=== PATIENT | male | born 1950 | race Caucasian/White ===

== ENCOUNTER 2022-04-22 10:01 | Emergency (ER) | payer OTHER ==
[~2022-04-22] VITALS: Ht 175.3 cm; Wt 115.2 kg
[~2022-04-22 10:01] MED LIST: ACAR50TA5 PO; ALBU6.7H14 IH; ASPI-1197 PO; ATOR-2 PO; BUDE10.2 IH; FERR-63 PO; FLUO20CA36 PO; FOLI1TAB15 PO; FURO40TA5 PO; GABA-533 PO; Isosorbide Mono 30MG Sr Tab PO; LAMO100T56 PO; LEVE750T10 PO; LOSA100T58 PO; MECL-129 PO; METF-446 PO; METO50TA9 PO; OMEP20CA12 PO; PHENY100 PO; POTA-79 PO; RANO500T3 PO; RIVA2.5T PO; RIVA20TA PO; TAMS0.4C32 PO; TICA90TA PO; VITA1CAP85 PO
[2022-04-22 10:40] LABS: BASOPHILS % (AUTO) 0.8 % (0.0-5.0); EOSINOPHILS % (AUTO) 4.4 % (0.0-8.0); LYMPHOCYTES % (AUTO) 29.2 % (21.0-51.0); MEAN CORPUSCULAR HEMOGLOBIN 24.8 pg (27.0-33.0); MEAN CORPUSCULAR HGB CONC 30.7 g/dL (32.0-36.0); MEAN CORPUSCULAR VOLUME 80.8 fL (79-99); MONOCYTES % (AUTO) 9.4 % (3.0-13.0); NEUTROPHILS % (AUTO) 55.9 % (40.0-77.0); PLATELET COUNT (AUTO) 278 K/uL (130-400); RED BLOOD CELL COUNT(AUTO) 3.59 MIL/uL (4.50-6.20); RED CELL DISTRIBUTION WIDTH 15.3 % (11.0-15.5)
[2022-04-22 10:54] LABS: ALBUMIN 3.3 g/dL (3.5-5.0); POTASSIUM 4.9 mmol/L (3.5-5.1); TOTAL PROTEIN, SERUM 7.8 g/dL (6.0-8.3)
[2022-04-22] MEDS ORDERED: ONDANSETRON ODT 4MG TAB SL STA (11:54)
[2022-04-22 12:10] VITALS: BP 130/64
[2022-04-22] MEDS ORDERED: CEPH500B PO (12:18)
== END 2022-04-22 12:43 | disposition home or self-care (01) ==
LOC: EDH 10:01
DX: I80.8 Phlebitis and thrombophlebitis of other sites (principal); J44.9 Chronic obstructive pulmonary disease, unspecified; E11.9 Type 2 diabetes mellitus without complications; E78.00 Pure hypercholesterolemia, unspecified; I10 Essential (primary) hypertension; G47.30 Sleep apnea, unspecified; I21.9 Acute myocardial infarction, unspecified; Z90.49 Acquired absence of other specified parts of digestive tract; Z79.51 Long term (current) use of inhaled steroids; Z79.84 Long term (current) use of oral hypoglycemic drugs; Z79.82 Long term (current) use of aspirin
CPT/HCPCS: 36415; 80053; 85025; 93971

== ENCOUNTER → 2022-09-05 | Outpatient (CLI) | payer MEDICARE ==
[~2022-09-05] MED LIST changes: +CEPH500B PO; +PHEN100C10 PO; -PHENY100 PO
[2022-09-05 16:17] LABS: BASOPHILS % (AUTO) 0.6 % (0.0-5.0); EOSINOPHILS % (AUTO) 1.5 % (0.0-8.0); HEMATOCRIT 33.1 % (42-54); LYMPHOCYTES % (AUTO) 30.1 % (21.0-51.0); MEAN CORPUSCULAR HEMOGLOBIN 24.6 pg (27.0-33.0); MEAN CORPUSCULAR HGB CONC 29.9 g/dL (32.0-36.0); MEAN CORPUSCULAR VOLUME 82.1 fL (79-99); MONOCYTES % (AUTO) 11.4 % (3.0-13.0); NEUTROPHILS % (AUTO) 56.2 % (40.0-77.0); PLATELET COUNT (AUTO) 376 K/uL (130-400); RED BLOOD CELL COUNT(AUTO) 4.03 MIL/uL (4.50-6.20); RED CELL DISTRIBUTION WIDTH 24.2 % (11.0-15.5); WHITE BLOOD COUNT (AUTO) 4.8 K/uL (4.8-10.8)
[2022-09-05 16:26] LABS: ALBUMIN 3.6 g/dL (3.5-5.0); CREATININE 0.9 mg/dL (0.5-1.5); MAGNESIUM 1.9 mg/dL (1.80-2.40); TOTAL PROTEIN, SERUM 7.2 g/dL (6.0-8.3)
== END | disposition home or self-care (01) ==
LOC: LAB 14:04
PROVIDERS: ATTEND Physician Assistant
DX: I10 Essential (primary) hypertension (principal); E78.5 Hyperlipidemia, unspecified
CPT/HCPCS: 36415; 80053; 83735; 83880; 85025

== ENCOUNTER 2022-09-27 23:02 | Inpatient (IN) | payer MEDICARE, OTHER ==
[~2022-09-27] VITALS: Ht 175.3 cm; Wt 106.6 kg
[2022-09-27 02:45] VITALS: BP 127/57
[2022-09-27 20:15] VITALS: BP 126/69
[2022-09-27] MEDS ORDERED: HEPARIN 5,000 UNIT VIAL ONE (23:09)
[2022-09-27] MEDS ORDERED: TICAGRELOR 90 MG TABLET ONE ×2 (23:09→23:11)
[2022-09-27] MEDS ORDERED: MORPHINE 4 MG SYG ONE (23:10)
[2022-09-27] MEDS ORDERED: ONDANSETRON 4MG INJ ONE (23:10)
[2022-09-27] MEDS: TICAGRELOR 90 MG TABLET PO SCH (23:16)
[2022-09-27] MEDS: HEPARIN 5,000 UNIT VIAL IV SCH (23:17)
[2022-09-27 23:22] LABS: BASOPHILS % (AUTO) 0.5 % (0.0-5.0); EOSINOPHILS % (AUTO) 2.9 % (0.0-8.0); HEMATOCRIT 31.7 % (42-54); LYMPHOCYTES % (AUTO) 33.4 % (21.0-51.0); MEAN CORPUSCULAR HEMOGLOBIN 25.4 pg (27.0-33.0); MEAN CORPUSCULAR HGB CONC 31.5 g/dL (32.0-36.0); MEAN CORPUSCULAR VOLUME 80.5 fL (79-99); MONOCYTES % (AUTO) 9.8 % (3.0-13.0); NEUTROPHILS % (AUTO) 53.4 % (40.0-77.0); PLATELET COUNT (AUTO) 252 K/uL (130-400); RED BLOOD CELL COUNT(AUTO) 3.94 MIL/uL (4.50-6.20); RED CELL DISTRIBUTION WIDTH 20.3 % (11.0-15.5); WHITE BLOOD COUNT (AUTO) 4.2 K/uL (4.8-10.8)
[2022-09-27] MEDS ORDERED: ONDANSETRON 4MG INJ IVP ONE (23:30)
[2022-09-27] MEDS ORDERED: MORPHINE 2 MG SYG IV PRN (23:30)
[2022-09-27] MEDS ORDERED: MORPHINE 4 MG SYG IVP ONE (23:30)
[2022-09-27] MEDS ORDERED: ONDANSETRON 4MG INJ IV PRN (23:30)
[2022-09-27] MEDS ORDERED: LACTATED RINGERS 1000ML 1,000 ML IV ONE (23:30)
[2022-09-27] MEDS ORDERED: 0.9%NACL 1000ML 1,000 ML IV SCH (23:30)
[2022-09-27] MEDS ORDERED: ACETAMINOPHEN 325 MG TAB PO PRN ×2 (23:30)
[2022-09-27] MEDS ORDERED: MORPHINE 4 MG SYG IV PRN (23:30)
[2022-09-27] MEDS ORDERED: ATROPINE 1MG SYG IVP ONE (23:32)
[2022-09-27] MEDS ORDERED: LIDOCAINE PF 100MG/5ML (2%) SYRINGE 5ML ONE (23:32)
[2022-09-27] MEDS ORDERED: LIDOCAINE HCL 400MG/20ML VIAL ONE (23:32)
[2022-09-27] MEDS ORDERED: IOHEXOL-350 50ML VIAL IV ONE (23:33)
[2022-09-27] MEDS ORDERED: NITROGLYCERIN 50MG VIAL ONE (23:33)
[2022-09-27] MEDS ORDERED: IOHEXOL-350 75 ML VIAL IV ONE (23:33)
[2022-09-27] MEDS ORDERED: MIDAZOLAM HCL 1 MG/ML 2ML VIAL ONE (23:33)
[2022-09-27] MEDS ORDERED: FENTANYL CITRATE PF 50 MCG/1 ML 2ML VIAL ONE (23:33)
[2022-09-27] MEDS ORDERED: DOPAMINE HCL 400 MG/D5%-WATER 0 ML IV ONE (23:34)
[2022-09-27] MEDS ORDERED: NICARDIPINE 25MG INJ IV ONE (23:34)
[2022-09-27 23:36] LABS: ALBUMIN 3.3 g/dL (3.5-5.0); TOTAL PROTEIN, SERUM 7.1 g/dL (6.0-8.3)
[2022-09-28] VITALS (9 sets, daily range): BP systolic 108–127; BP diastolic 51–72
[2022-09-28] LABS: HEMOGLOBIN A1C 4.4 % (4.0-6.0)
[2022-09-28] MEDS ORDERED: IPRATROPIUM/ALBUTEROL SULFATE 3 ML SOLUTION IH SCH
[2022-09-28] MEDS ORDERED: HEPARIN 10,000 UNIT/10ML (1,000 UNIT/ML) VIAL ONE (00:01)
[2022-09-28 00:09] LABS: B-TYPE NATRIURETIC PEPTIDE 384 pg/mL (0-100)
[2022-09-28] MEDS ORDERED: ASPIRIN 325MG EC TAB PO ONE (02:20)
[2022-09-28] MEDS ORDERED: 0.9%NACL 1000ML 1,000 ML IV SCH (02:30)
[2022-09-28] MEDS ORDERED: DEXTROSE 50%-WATER 50 ML DISP.SYRIN IV PRN (02:30)
[2022-09-28] MEDS ORDERED: GLUCAGON 1MG KIT 1 MG ML IM PRN (02:30)
[2022-09-28] MEDS ORDERED: LEVE10006 PO (03:27)
[2022-09-28] MEDS ORDERED: ACET-2079 PO (03:32)
[2022-09-28] MEDS ORDERED: ALBU2.5V2 IH (03:33)
[2022-09-28] MEDS ORDERED: ATOR-2 PO (03:34)
[2022-09-28] MEDS ORDERED: CARB1DRO40 OP (03:36)
[2022-09-28] MEDS ORDERED: FERS325 PO (03:36)
[2022-09-28] MEDS ORDERED: FLUO40CA49 PO (03:38)
[2022-09-28] MEDS ORDERED: FOLI1 PO (03:38)
[2022-09-28] MEDS ORDERED: LOSA25TA41 PO (03:40)
[2022-09-28] MEDS ORDERED: LAMO150T6 PO (03:40)
[2022-09-28 03:43] LABS: BASOPHILS % (AUTO) 0.5 % (0.0-5.0); EOSINOPHILS % (AUTO) 2.5 % (0.0-8.0); HEMATOCRIT 29.7 % (42-54); LYMPHOCYTES % (AUTO) 41.3 % (21.0-51.0); MEAN CORPUSCULAR HEMOGLOBIN 25.1 pg (27.0-33.0); MEAN CORPUSCULAR HGB CONC 31.6 g/dL (32.0-36.0); MEAN CORPUSCULAR VOLUME 79.2 fL (79-99); MONOCYTES % (AUTO) 11.3 % (3.0-13.0); NEUTROPHILS % (AUTO) 44.1 % (40.0-77.0); PLATELET COUNT (AUTO) 245 K/uL (130-400); RED BLOOD CELL COUNT(AUTO) 3.75 MIL/uL (4.50-6.20); RED CELL DISTRIBUTION WIDTH 20.6 % (11.0-15.5)
[2022-09-28] MEDS ORDERED: METO-408 PO (03:43)
[2022-09-28] MEDS ORDERED: PRAZ1CAP5 PO (03:44)
[2022-09-28] MEDS ORDERED: PANT40GR PO (03:44)
[2022-09-28 03:47] LABS: MAGNESIUM 1.7 mg/dL (1.80-2.40); PHOSPHORUS 4.4 mg/dL (2.5-4.9); POTASSIUM 3.7 mmol/L (3.5-5.1)
[2022-09-28] MEDS ORDERED: TICA90TA PO (03:47)
[2022-09-28] MEDS ORDERED: RANO500T2 PO (03:47)
[2022-09-28] MEDS ORDERED: RIVA20TA PO (03:47)
[2022-09-28] MEDS ORDERED: VITA1CAP85 PO (03:52)
[2022-09-28] MEDS: INSULIN HUMULIN R 100 UNIT/ML 3ML SQ SCH ×4 (05:47→21:00)
[2022-09-28] MEDS ORDERED: BUDESONIDE 0.5 MG/2 ML INH IH SCH (06:00)
[2022-09-28] MEDS ORDERED: IPRATROPIUM/ALBUTEROL SULFATE 3 ML SOLUTION IH PRN (08:30)
[2022-09-28] MEDS ORDERED: POTASSIUM CHLORIDE 10% ELIXIR 20 MEQ/15 ML UDCUP PO PRN (09:00)
[2022-09-28] MEDS ORDERED: POTASSIUM CHLORIDE 20MEQ/100ML 100 ML IV PRN (09:00)
[2022-09-28] MEDS: RIVAROXABAN 15 MG TABLET PO SCH (09:19)
[2022-09-28] MEDS: METOPROLOL SUCCINATE 25 MG TAB.SR.24H PO SCH (09:19)
[2022-09-28] MEDS: ASPIRIN 81 MG EC TAB PO SCH (09:19)
[2022-09-28] MEDS: FAMOTIDINE 20MG VIAL IV SCH (09:19)
[2022-09-28] MEDS: TICAGRELOR 90 MG TABLET PO SCH ×3 (09:19→23:30)
[2022-09-28] MEDS: MAGNESIUM 2GM PREMIX 50ML 50 ML IV PRN (11:37)
[2022-09-28] MEDS: KCL 20 MEQ ERTAB PO PRN ×2 (11:38→11:40)
[2022-09-28] MEDS ORDERED: ATORVASTATIN 40 MG TABLET PO SCH (21:00)
[2022-09-28] MEDS: HEPARIN 5,000 UNIT VIAL IV SCH (23:30)
[2022-09-29 00:05] VITALS: BP 147/79
[2022-09-29 03:57] VITALS: BP 137/72
[2022-09-29 04:24] LABS: BASOPHILS % (AUTO) 0.6 % (0.0-5.0); EOSINOPHILS % (AUTO) 2.8 % (0.0-8.0); HEMATOCRIT 30.6 % (42-54); LYMPHOCYTES % (AUTO) 32.8 % (21.0-51.0); MEAN CORPUSCULAR HEMOGLOBIN 24.9 pg (27.0-33.0); MEAN CORPUSCULAR HGB CONC 31.4 g/dL (32.0-36.0); MEAN CORPUSCULAR VOLUME 79.3 fL (79-99); MONOCYTES % (AUTO) 9.7 % (3.0-13.0); NEUTROPHILS % (AUTO) 53.9 % (40.0-77.0); PLATELET COUNT (AUTO) 253 K/uL (130-400); RED BLOOD CELL COUNT(AUTO) 3.86 MIL/uL (4.50-6.20); RED CELL DISTRIBUTION WIDTH 20.4 % (11.0-15.5); WHITE BLOOD COUNT (AUTO) 6.4 K/uL (4.8-10.8)
[2022-09-29 04:32] LABS: CREATININE 0.9 mg/dL (0.5-1.5); MAGNESIUM 1.8 mg/dL (1.80-2.40); POTASSIUM 4.6 mmol/L (3.5-5.1)
[2022-09-29 07:00] VITALS: BP 140/68
[2022-09-29] MEDS: INSULIN HUMULIN R 100 UNIT/ML 3ML SQ SCH ×2 (07:30→11:30)
[2022-09-29] MEDS: TICAGRELOR 90 MG TABLET PO SCH (08:28)
[2022-09-29] MEDS: ASPIRIN 81 MG EC TAB PO SCH (08:28)
[2022-09-29] MEDS: FAMOTIDINE 20MG VIAL IV SCH (08:29)
[2022-09-29] MEDS: RIVAROXABAN 15 MG TABLET PO SCH (08:29)
[2022-09-29] MEDS: METOPROLOL SUCCINATE 25 MG TAB.SR.24H PO SCH (08:29)
[2022-09-29 11:00] VITALS: BP 130/62
[2022-09-29] MEDS: MAGNESIUM 2GM PREMIX 50ML 50 ML IV PRN (11:37)
[2022-09-29] MEDS ORDERED: AEC81 PO (13:11)
== END 2022-09-29 13:45 | disposition home or self-care (01) | DRG 246 ==
LOC: EDH 23:02 → EDBD 23:02 → EDHIP 23:10 → 2DH 09-28 02:50
PROVIDERS: ADMIT Internal Medicine; ATTEND Internal Medicine
PROC: 4A023N7 Measurement of Cardiac Sampling and Pressure, Left Heart, Percutaneous Approach (ICD-10-PCS; principal; 2022-09-28)
PROC: 027034Z Dilation of Coronary Artery, One Artery with Drug-eluting Intraluminal Device, Percutaneous Approach (ICD-10-PCS; 2022-09-28)
PROC: B2111ZZ Fluoroscopy of Multiple Coronary Arteries using Low Osmolar Contrast (ICD-10-PCS; 2022-09-28)
PROC: B2131ZZ Fluoroscopy of Multiple Coronary Artery Bypass Grafts using Low Osmolar Contrast (ICD-10-PCS; 2022-09-28)
DX: I25.810 Atherosclerosis of coronary artery bypass graft(s) without angina pectoris (principal); I21.3 ST elevation (STEMI) myocardial infarction of unspecified site; I50.22 Chronic systolic (congestive) heart failure; I11.0 Hypertensive heart disease with heart failure; I48.0 Paroxysmal atrial fibrillation; G40.909 Epilepsy, unspecified, not intractable, without status epilepticus; E11.9 Type 2 diabetes mellitus without complications; E78.00 Pure hypercholesterolemia, unspecified; I25.5 Ischemic cardiomyopathy; J44.9 Chronic obstructive pulmonary disease, unspecified; I25.2 Old myocardial infarction; Z79.01 Long term (current) use of anticoagulants; Z79.02 Long term (current) use of antithrombotics/antiplatelets; Z79.51 Long term (current) use of inhaled steroids; Z79.82 Long term (current) use of aspirin; Z79.899 Other long term (current) drug therapy; Z82.3 Family history of stroke; Z82.49 Family history of ischemic heart disease and other diseases of the circulatory system; Z82.5 Family history of asthma and other chronic lower respiratory diseases; Z83.3 Family history of diabetes mellitus; Z87.891 Personal history of nicotine dependence; Z90.49 Acquired absence of other specified parts of digestive tract; Z95.1 Presence of aortocoronary bypass graft; Z95.5 Presence of coronary angioplasty implant and graft
CPT/HCPCS: 36415; 71045; 80048; 80053; 82948; 83036; 83735; 83880; 84100; 84484; 85025; 86850; 86900; 86901; 87040; 93005; 93306; 93455; 94640; 94664; 99156; 99157; 99291; C1760; C1769; C1887; C1894; C9604; G0378; J0461; J1265; J1644; J2001; J2250; J2270; J2405; J3010; J3475; J3490; Q9967

== ENCOUNTER 2023-09-22 12:01 | Inpatient (IN) | payer MEDICARE, OTHER ==
[2023-09-22] VITALS (10 sets, daily range): BP systolic 91–123; BP diastolic 50–65; PULSE 54–59; RESP 14–23; O2SAT 92–98
[~2023-09-22] VITALS: Ht 175.3 cm; Wt 49.9 kg
[~2023-09-22 12:01] MED LIST changes: -ACAR50TA5 PO; +AEC81 PO; +ALBU2.5V2 IH; -ASPI-1197 PO; -BUDE10.2 IH; +CARB1DRO40 OP; -CEPH500B PO; +CLOP-31 PO; -FERR-63 PO; +FERS325 PO; -FLUO20CA36 PO; +FLUO40CA49 PO; +FOLI1 PO; -FOLI1TAB15 PO; +FURO20TA6 PO; -FURO40TA5 PO; -GABA-533 PO; -Isosorbide Mono 30MG Sr Tab PO; -LAMO100T56 PO; +LAMO150T6 PO; +LEVE10006 PO; -LEVE750T10 PO; -LOSA100T58 PO; -MECL-129 PO; -METF-446 PO; +METO-408 PO; -METO50TA9 PO; -OMEP20CA12 PO; +PANT40TA55 PO; -PHEN100C10 PO; -POTA-79 PO; +PRAZ1CAP5 PO; +RANO500T2 PO; -RANO500T3 PO; -RIVA2.5T PO; -RIVA20TA PO; +SACU1TAB PO; -TAMS0.4C32 PO; -TICA90TA PO
[2023-09-22] MEDS: NITROGLYCERIN 1GM OINT 1 INCH/1GM TD ONE (12:30)
[2023-09-22] MEDS: ENOXAPARIN SODIUM 120 MG/0.8ML SQ ONE (12:30)
[2023-09-22 12:35] LABS: BASOPHILS # (AUTO) 0.02 K/uL (0.00-0.20); BASOPHILS % (AUTO) 0.3 % (0.0-5.0); EOSINOPHILS # (AUTO) 0.17 K/uL (0.00-0.70); EOSINOPHILS % (AUTO) 2.4 % (0.0-8.0); HEMATOCRIT 33.6 % (42-54); IMMATURE GRANULOCYTE ABSOLUTE 0.02 K/uL (0-1); LYMPHOCYTES # (AUTO) 1.4 K/uL (1.0-4.8); LYMPHOCYTES % (AUTO) 19.9 % (21.0-51.0); MEAN CORPUSCULAR HEMOGLOBIN 32.2 pg (27.0-33.0); MEAN CORPUSCULAR HGB CONC 36.3 g/dL (32.0-36.0); MEAN CORPUSCULAR VOLUME 88.7 fL (79-99); MONOCYTES # (AUTO) 0.8 K/uL (0.1-1.0); MONOCYTES % (AUTO) 11.2 % (3.0-13.0); NEUTROPHILS # (AUTO) 4.6 K/uL (1.8-7.7); NEUTROPHILS % (AUTO) 65.9 % (40.0-77.0); PLATELET COUNT (AUTO) 192 K/uL (130-400); RED BLOOD CELL COUNT(AUTO) 3.79 MIL/uL (4.50-6.20); RED CELL DISTRIBUTION WIDTH 12.6 % (11.0-15.5)
[2023-09-22 12:52] LABS: CREATININE 0.9 mg/dL (0.5-1.3); POTASSIUM 4.3 mmol/L (3.5-5.1)
[2023-09-22 12:56] LABS: BILIRUBIN,TOTAL 0.6 mg/dL (0.2-1.0); MAGNESIUM 1.7 mg/dL (1.80-2.40); TOTAL PROTEIN, SERUM 6.4 g/dL (6.0-8.3)
[2023-09-22] MEDS ORDERED: GUAIFENESIN-DM 200/20 MG 10 ML PO PRN (14:00)
[2023-09-22] MEDS ORDERED: DIPHENHYDRAMINE HCL 25 MG CAPSULE PO PRN (14:00)
[2023-09-22] MEDS ORDERED: NITROGLYCERIN 0.4 MG SL TAB SL PRN (14:00)
[2023-09-22] MEDS ORDERED: MORPHINE 2 MG SYG IV PRN (14:00)
[2023-09-22] MEDS ORDERED: LACTULOSE 20 GM/30 ML UDCUP PO PRN (14:00)
[2023-09-22] MEDS ORDERED: MAG/ALUM/SIMETH 30 ML UDCUP PO PRN (14:00)
[2023-09-22] MEDS ORDERED: ACETAMINOPHEN 325 MG TAB PO PRN (14:00)
[2023-09-22] MEDS ORDERED: IPRATROPIUM/ALBUTEROL SULFATE 3 ML SOLUTION IH PRN (17:00)
[2023-09-22] MEDS: CEFTRIAXONE 1G VIAL IVPB SCH (17:28)
[2023-09-22] MEDS: ISOSORBIDE MONO 60MG SR TAB PO SCH (17:30)
[2023-09-22] MEDS: SACUBITRIL/VALSARTAN 1 EACH TABLET PO ONE (17:30)
[2023-09-22] MEDS: AZITHROMYCIN 500MG+NS 250ML 250 ML IVPB SCH (17:48)
[2023-09-22] MEDS: ONDANSETRON 4MG INJ IV PRN (18:07)
[2023-09-22] MEDS: SODIUM CHLORIDE 7% INHALATION 4 ML VIAL.NEB IH ONE (18:50)
[2023-09-22] MEDS: RANOLAZINE 500 MG TAB.SR.12H PO SCH (20:59)
[2023-09-22] MEDS: APIXABAN 5 MG TABLET PO SCH (20:59)
[2023-09-22] MEDS: ATORVASTATIN 40 MG TABLET PO SCH (20:59)
[2023-09-22] MEDS ORDERED: GLUCAGON 1MG KIT 1 MG ML IM PRN (21:00)
[2023-09-22] MEDS ORDERED: POTASSIUM CHLORIDE 20MEQ/100ML 100 ML IV PRN ×2 (21:00)
[2023-09-22] MEDS ORDERED: POTASSIUM CHLORIDE 10% ELIXIR 20 MEQ/15 ML UDCUP PO PRN (21:00)
[2023-09-22] MEDS ORDERED: DEXTROSE 50%-WATER 50 ML DISP.SYRIN IV PRN (21:00)
[2023-09-22] MEDS: FAMOTIDINE 20MG VIAL IV SCH (21:00)
[2023-09-22] MEDS ORDERED: KCL 20 MEQ ERTAB PO PRN (21:00)
[2023-09-22] MEDS: MAGNESIUM 2GM PREMIX 50ML 50 ML IV PRN (21:10)
[2023-09-23] VITALS (54 sets, daily range): BP systolic 83–143; BP diastolic 29–77; PULSE 48–82; RESP 11–56; O2SAT 94–98
[2023-09-23] MEDS: ALBUMIN (HUMAN) 25% 100 ML IV ONE ×2 (02:30→02:38)
[2023-09-23] MEDS: MIDODRINE HCL 5 MG TABLET PO ONE (02:39)
[2023-09-23] MEDS: MIDODRINE HCL 5 MG TABLET ONE (02:39)
[2023-09-23 03:56] LABS: BASOPHILS # (AUTO) 0.03 K/uL (0.00-0.20); BASOPHILS % (AUTO) 0.4 % (0.0-5.0); EOSINOPHILS # (AUTO) 0.24 K/uL (0.00-0.70); EOSINOPHILS % (AUTO) 3.3 % (0.0-8.0); HEMATOCRIT 32.1 % (42-54); IMMATURE GRANULOCYTE ABSOLUTE 0.02 K/uL (0-1); LYMPHOCYTES # (AUTO) 1.8 K/uL (1.0-4.8); LYMPHOCYTES % (AUTO) 24.2 % (21.0-51.0); MEAN CORPUSCULAR HEMOGLOBIN 31.3 pg (27.0-33.0); MEAN CORPUSCULAR HGB CONC 34.9 g/dL (32.0-36.0); MEAN CORPUSCULAR VOLUME 89.7 fL (79-99); MONOCYTES # (AUTO) 0.8 K/uL (0.1-1.0); MONOCYTES % (AUTO) 11.3 % (3.0-13.0); NEUTROPHILS # (AUTO) 4.4 K/uL (1.8-7.7); NEUTROPHILS % (AUTO) 60.5 % (40.0-77.0); PLATELET COUNT (AUTO) 184 K/uL (130-400); RED BLOOD CELL COUNT(AUTO) 3.58 MIL/uL (4.50-6.20); RED CELL DISTRIBUTION WIDTH 12.7 % (11.0-15.5); WHITE BLOOD COUNT (AUTO) 7.3 K/uL (4.8-10.8)
[2023-09-23 04:10] LABS: ALBUMIN 3.4 g/dL (3.5-5.0); BILIRUBIN,TOTAL 0.6 mg/dL (0.2-1.0); CREATININE 0.9 mg/dL (0.5-1.3); POTASSIUM 4.3 mmol/L (3.5-5.1); TOTAL PROTEIN, SERUM 6.2 g/dL (6.0-8.3)
[2023-09-23 04:33] LABS: B-TYPE NATRIURETIC PEPTIDE 56 pg/mL (0-100)
[2023-09-23] MEDS: CLOPIDOGREL 75MG TAB PO SCH (08:24)
[2023-09-23] MEDS: FUROSEMIDE 20 MG TABLET PO SCH (08:25)
[2023-09-23] MEDS: METOPROLOL SUCCINATE 25 MG TAB.SR.24H PO SCH (08:25)
[2023-09-23] MEDS: SODIUM CHLORIDE 3% FOR INHALATION 4 ML/AMP VIAL.NEB IH ONE (10:10)
[2023-09-23] MEDS ORDERED: AMOX-426 PO (15:32)
[2023-09-23] MEDS ORDERED: PRED20TA3 PO (15:32)
[2023-09-24] VITALS (8 sets, daily range): BP systolic 125–138; BP diastolic 54–82; PULSE 59–85; RESP 17–18; O2SAT 97–98
[2023-09-24 05:04] LABS: BASOPHILS # (AUTO) 0.04 K/uL (0.00-0.20); BASOPHILS % (AUTO) 0.6 % (0.0-5.0); EOSINOPHILS # (AUTO) 0.25 K/uL (0.00-0.70); EOSINOPHILS % (AUTO) 3.7 % (0.0-8.0); HEMATOCRIT 35.5 % (42-54); IMMATURE GRANULOCYTE ABSOLUTE 0.01 K/uL (0-1); LYMPHOCYTES # (AUTO) 1.7 K/uL (1.0-4.8); LYMPHOCYTES % (AUTO) 24.9 % (21.0-51.0); MEAN CORPUSCULAR HEMOGLOBIN 32.1 pg (27.0-33.0); MEAN CORPUSCULAR HGB CONC 35.5 g/dL (32.0-36.0); MEAN CORPUSCULAR VOLUME 90.6 fL (79-99); MONOCYTES # (AUTO) 0.7 K/uL (0.1-1.0); MONOCYTES % (AUTO) 10.5 % (3.0-13.0); NEUTROPHILS # (AUTO) 4.1 K/uL (1.8-7.7); NEUTROPHILS % (AUTO) 60.2 % (40.0-77.0); PLATELET COUNT (AUTO) 190 K/uL (130-400); RED BLOOD CELL COUNT(AUTO) 3.92 MIL/uL (4.50-6.20); RED CELL DISTRIBUTION WIDTH 12.4 % (11.0-15.5); WHITE BLOOD COUNT (AUTO) 6.7 K/uL (4.8-10.8)
[2023-09-24 05:17] LABS: ALBUMIN 3.1 g/dL (3.5-5.0); BILIRUBIN,TOTAL 0.5 mg/dL (0.2-1.0); MAGNESIUM 1.9 mg/dL (1.80-2.40); POTASSIUM 4.4 mmol/L (3.5-5.1); TOTAL PROTEIN, SERUM 6.6 g/dL (6.0-8.3)
[2023-09-24] MEDS ORDERED: IOHEXOL-350 75 ML VIAL IV ONE (06:07)
[2023-09-24] MEDS: IPRATROPIUM/ALBUTEROL SULFATE 3 ML SOLUTION IH SCH (07:02)
[2023-09-24] MEDS ORDERED: Isosorbide Mono 60MG Sr Tab PO (11:04)
[2023-09-24] MEDS ORDERED: PHARMACY COMMUNICATION MISC SCH (14:00)
== END 2023-09-24 16:45 | disposition home or self-care (01) | DRG 302 ==
LOC: EDH 12:01 → EDHIP 13:46 → 2BH 19:58 → 4AH 09-23 18:14
PROVIDERS: ADMIT Internal Medicine; ATTEND Internal Medicine
DX: I25.110 Atherosclerotic heart disease of native coronary artery with unstable angina pectoris (principal); J18.9 Pneumonia, unspecified organism; J44.0 Chronic obstructive pulmonary disease with (acute) lower respiratory infection; I48.20 Chronic atrial fibrillation, unspecified; I50.22 Chronic systolic (congestive) heart failure; Z68.1 Body mass index [BMI] 19.9 or less, adult; J84.10 Pulmonary fibrosis, unspecified; E83.42 Hypomagnesemia; E11.9 Type 2 diabetes mellitus without complications; E66.9 Obesity, unspecified; E78.00 Pure hypercholesterolemia, unspecified; G40.909 Epilepsy, unspecified, not intractable, without status epilepticus; G47.33 Obstructive sleep apnea (adult) (pediatric); I11.0 Hypertensive heart disease with heart failure; I25.5 Ischemic cardiomyopathy; I48.0 Paroxysmal atrial fibrillation; Z79.01 Long term (current) use of anticoagulants; R59.0 Localized enlarged lymph nodes; Z79.02 Long term (current) use of antithrombotics/antiplatelets; Z87.891 Personal history of nicotine dependence; Z79.899 Other long term (current) drug therapy; Z95.1 Presence of aortocoronary bypass graft; Z95.5 Presence of coronary angioplasty implant and graft; I25.2 Old myocardial infarction; Z88.8 Allergy status to other drugs, medicaments and biological substances; Z88.1 Allergy status to other antibiotic agents; Z91.013 Allergy to seafood; Z82.49 Family history of ischemic heart disease and other diseases of the circulatory system; Z83.3 Family history of diabetes mellitus
CPT/HCPCS: 36415; 71045; 71250; 71270; 76376; 80053; 82948; 83735; 83880; 84145; 84484; 85025; 85378; 87040; 87071; 87205; 93005; 93306; 93356; 93970; 94640; 94664; 94760; 96375; G0378; J0456; J0696; J1650; J2405; J3475; J3490; P9046; Q9967